=== PATIENT | male | born 1995 | race Caucasian/White ===

== ENCOUNTER 2024-03-08 06:41 | Outpatient (REF) | payer OTHER, SELFPAY ==
--- NOTE | ~2024-03-08 | US_ITS ---
EXAMINATION: US LEFT INGUINAL REGION, LEFT LOWER QUADRANT, LIMITED/FOLLOW UP CLINICAL INFORMATION: History of left inguinal hernia repair on July 2023, left lower quadrant pain with internal discomfort. No prior images available. COMPARISON: None available. TECHNIQUE: Targeted ultrasound images were obtained by the digital content coordinator of the area of concern as indicated by the patient in the left inguinal region and left lower quadrant. Radiologist was not in attendance. Images were later provided for interpretation. FINDINGS: No discrete hernia, mass or fluid collection identified in the area of concern indicated by the patient in the left inguinal region/left lower quadrant. Limited visualization due to bowel gas.. US/US pelvic limited IMPRESSION: No discrete hernia, mass or fluid collection identified in the area of concern indicated by the patient in the left inguinal region/left lower quadrant. Limited visualization due to bowel gas. CT scan could be considered for further evaluation. This study was presented today to March 08, 2024 for interpretation. Stat results provided at this time as requested by referring provider. Electronically signed by: Luz Arciniega MD 03/08/2024 01:33 PM BRANDON
== END 2024-03-08 06:42 | disposition home or self-care (01) ==
LOC: HO.UMASIMG 06:41
PROVIDERS: Visit Provider Emergency Medicine
DX: K40.91 Unilateral inguinal hernia, without obstruction or gangrene, recurrent (principal)
CPT/HCPCS: 76857

== ENCOUNTER → 2024-04-27 09:00 | Outpatient (BNV) | payer OTHER, SELFPAY | PROVIDERS: Visit Provider Internal Medicine Cardiovascular Disease | DX: R00.2 Palpitations (principal) | CPT/HCPCS: 93244 ==

== ENCOUNTER → 2024-04-27 10:30 | Outpatient (REF) | payer OTHER, SELFPAY ==
--- NOTE | 2024-04-27 | HM_ITS ---
Conclusion: 1. Patient was monitored for total period of 3 days 2. Baseline was normal sinus rhythm with average heart rate of 70 beats per minute 3. No significant pauses or arrhythmias noted 4. Patient reported 4 events with symptoms of palpitations correlating with sinus rhythm MTDD
--- OUTSIDE RECORDS SUMMARY | 2024-04-27 17:33 | XMS_ITS | Encounter Summary ---
Author Organization [facility] Address [address] [place] [address] Care Team Providers Care Tech Brazer Tester Name Role Phone Kiersten Sykes PA-C Primary Care Provider [phone]- [phone] Encounter Details Date Type Department Care Team (Late st Contact Info) Description 06/23/2023 Procedure [facility] Radiology Ultrasound [address] [place] [address] Social History Tobacco Use Types Packs/Day Years Used Date Smoking Tobacco: Never Assessed Sex and Gender Information Value Date Recorded Sex Assigned at Not on file Legal Sex Male 10:17 AM EDT Gender Identity Not on file Sexual Orientation Not on file documented as of this encounter Plan of Treatment Not on file documented as of this encounter Visit Diagnoses Not on filedocumented in this encounter Care Teams Tech Brazer Tester Relationship Specialty Start Date End Date Kiersten Sykes PA-C [address] [place] [address] PCP - General Physician Substation Maintenance Technician 06/25/23 documented as of this encounter
--- OUTSIDE RECORDS SUMMARY | 2024-04-27 17:34 | XMS_ITS | Patient Health Record ---
Author Organization [facility] Address [address] [place] [address] Care Team Providers Care Dairy Laboratory Technician Name Role Phone Onel Nikiazaynab Primary Care Provider Talha Fung Unavailable [phone] Allergies No Known Allergies Results Component Value Reference Range Notes Urinalysis, Routine, Micro o n positives - [id number] Reviewed date:06/29/2023 08:33:35 AM Interpretation: Performing Lab: Notes/Report: Specific [place] 1.010 1.005-1.030 pH 7.5 5.0-7.5 Urine-Color Yellow Yellow Appearance Clear Clear WBC Esterase Negative Negative Protein Negative Negative/Trace Glucose Negative Negative Ketones Negative Negative Occult Blood Negative Negative Bilirubin Negative Negative Urobilinogen,Semi-Qn 0.2 0.2-1.0 mg/dL Nitrite, Urine Negative Negative Microscopic Examination Comment Micr oscopic not indicated and not performed. CBC With Differential/Platel et Reviewed date:06/29/2023 08:33:35 AM Interpretation: Performing Lab: Notes/Report: WBC 5.4 3.4-10.8 x10E3/uL RBC 5.25 4.14-5.80 x10E6/uL Hemoglobin 15.2 13.0-17.7 g/dL Hematocrit 45.2 37.5-51.0 % MCV 86 79-97 fL MCH 29.0 26.6-33.0 pg MCHC 33.6 31.5-35.7 g/dL RDW 13.5 11.6-15.4 % Platelets 210 150-450 x10E3/uL Neutrophils 54 Not Estab. % Lymphs 37 Not Estab. % Monocytes 7 Not Estab. % Eos 1 Not Estab. % Basos 1 Not Estab. % Neutrophils (Absolute) 2.9 1.4-7.0 x10E3/uL Lymphs (Absolute) 2.0 0.7-3.1 x10E3/uL Monocytes(Absolute) 0.4 0.1-0.9 x10E3/uL Eos (Absolute) 0.1 0.0-0.4 x10E3/uL Baso (Absolute) 0.0 0.0-0.2 x10E3/uL Immature Granulocytes 0 Not Estab. % Immature Grans (Abs) 0.0 0.0-0.1 x10E3/uL Comp. Metabolic Panel (14) Reviewed date:06/29/2023 08:33:55 AM Interpretation: Performing Lab: Notes/Report: Glucose 89 70-99 mg/dL BUN 9 6-20 mg/dL Creatinine 0.80 0.76-1.27 mg/dL eGFR 125 >59 mL/min/1.73 BUN/Creatinine Ratio 11 9-20 Sodium 140 134-144 mmol/L Potassium 4.0 3.5-5.2 mmol/L Chloride 101 96-106 mmol/L Carbon Dioxide, Total 24 20-29 mmol/L Calcium 9.7 8.7-10.2 mg/dL Protein, Total 7.1 6.0-8.5 g/dL Albumin 4.8 4.3-5.2 g/dL Globulin, Total 2.3 1.5-4.5 g/dL A/G Ratio 2.1 1.2-2.2 Bilirubin, Total 1.4 0.0-1.2 mg/dL Alkaline Phosphatase 77 44-121 IU/L AST (SGOT) 39 0-40 IU/L ALT (SGPT) 71 0-44 IU/L LIPID PANEL Reviewed date:06/29/2023 08:33:55 AM Interpretation: Performing Lab: Notes/Report: Cholesterol, Total 172 100-199 mg/dL Triglycerides 111 0-149 mg/dL HDL Cholesterol 47 >39 mg/dL VLDL Cholesterol Juan Manuel 20 5-40 mg/dL LDL Chol Calc (NIH) 105 0-99 mg/dL HEMOGLOBIN A1c Reviewed date:06/29/2023 08:33:35 AM Interpretation: Performing Lab: Notes/Report: Hemoglobin A1c 5.0 4.8-5.6 % . Prediabetes: 5.7 - 6.4 Diabetes: >6.4 Glycemic control for adults with diabetes: <7.0 TSH Reviewed date:06/29/2023 08:33:35 AM Interpretation: Performing Lab: Notes/Report: TSH 1.630 0.450-4.500 uIU/mL Reason For Referral Reason 27 year old male wit h new left inguinal hernia. Please evaluate and treat Diagnosis 1 Inguinal hernia, lef t (K40.90) Referral Organization [facility] Referring Provider First Name Kiersten Referring Provider Last Name Onel Referring Provider Speciality Physician Measurer Machine Referred Provider Agustín Holland Referred Provider Specialty General Surg petr Referral Priority Routine Medications Medication SIG (Take, Route, Frequency, Duration) Notes Start Date End Date Status albuterol 90 mcg/inh 2 puff(s) inhaled e very 6 hours Not-Taking Yari OTC 30 mg/5 mL 5 mL orally 2 times a day Not-Taking Immunizations Vaccine Route Administration Date Status Comme nts Fluzone Unknown 12/16/2016 Administered Fluzone Unknown 12/26/2017 Administered Fluzone Unknown 01/02/2019 Administered Fluzone Unknown 01/24/2022 Administered Fluzone Unknown 02/12/2023 Administered MMR Unknown 07/16/2017 Administered Moderna Covid Bivalent 2021 Unknown 12/24/2021 Administ ered Moderna COVID-19 Unknown 03/18/2023 Administered Spikev ax RABim (Rabies, intramuscular) Unknown 06/05/2022 Admini stered RABim (Rabies, intramuscular) Unknown 06/09/2022 Admini stered RABim (Rabies, intramuscular) Unknown 06/13/2022 Admini stered RABim (Rabies, intramuscular) Unknown 06/20/2022 Admini stered Social History Tobacco Use: Social History Observation Description Date Details (start date - stop date) Never Smoker NA - NA Alcohol: Question Answer Notes Did you have a drink contain ing alcohol in the past year? Yes How often did you have a dri nk containing alcohol in the past year? Two to four times a month (2 points) How many drinks did you have on a typical day when you were drinking in the past year? 1 or 2 (0 points) How often did you have six o r more drinks on one occasion in the past year? Less than monthly (1 point) Points 3 Interpretation Negative Smoking: Question Answer Notes Are you a: nonsmoker Problems Problem Type SNOMED Code ICD Code Onset Dates Problem Status W/U Status Risk Notes Problem 274830912 Mild intermitten t asthma, uncomplicated (J45.20) Active confirmed Problem 270760669 Seasonal allergi es (J30.2) Active confirmed Vital Signs Temperature 98.1 degrees Fahrenheit 06/23/2023 Oximetry 98 07/21/2023 Blood pressure diastolic 72 mm Hg 07/21/2023 Height 63 in 07/21/2023 Blood pressure systolic 120 mm Hg 07/21/2023 Weight 165.4 lbs 07/21/2023 BMI 29.3 kg/m2 07/21/2023 Encounters Encounter Location Date Provider Diagnosis [facility] [address] [place] [address] 06/24/2023 Talha Fung [facility] [address] [place] [address] 06/23/2023 Kiersten Sykes Left groin mass R19.09 ; Seasonal allergies J30.2 ; Mild intermittent asthma, uncomplicated J45.20 ; Pain, joint, knee, left M25.562 and Abdominal bloating R14.0 [facility] [address] [place] [address] 07/21/2023 Kiersten Sykes Annual physical exam Z00.00 ; Left inguinal hernia K40.90 ; Seasonal allergies J30.2 ; Mild intermittent asthma, uncomplicated J45.20 ; Pain, joint, knee, left M25.562 ; Abdominal bloating R14.0 and Elevated LFTs R79.89 [facility] [address] [place] [address] 06/23/2023 Kiersten Sykes Abdominal bloating R14.0 ; Mild intermittent asthma, uncomplicated J45.20 ; Seasonal allergies J30.2 and Annual physical exam Z00.00 [facility] [address] [place] [address] 06/30/2023 Kiersten Sykes Inguinal hernia, lef t K40.90 [facility] [address] [place] [address] [address] [place] [address] 06/23/2023 Kiersten Sykes Assessments Encounter Date Diagnosis (ICD Code) Assessment Notes Treatment Notes Treatment Clinical Notes Section Notes 06/23/2023 Seasonal allergies (ICD-10 - J30.2) Hx of seasonal allergies. Using oral antihistamine on prn basis with good control.l 06/23/2023 Left groin mass (ICD-10 - R19.09) Progressively worsening left groin pain. Could not appreciate hernia on exam however plan to move forward with US to rule out. Discussed diagnosis of hernia in great detail. If present, will refer to general surgery for further evaluation. 06/23/2023 Mild intermittent asthma, uncomplicated (ICD-10 - J45.20) 06/23/2023 Abdominal bloating (ICD-10 - R14.0) 06/30/2023 Inguinal hernia, left (ICD-10 - K40.90) 07/21/2023 Annual physical exam (ICD-10 - Z00.00) Comprehensive exam performed. Counseled on diet and exercise. BMI reviewed - noted to be abnormal. Follow up plan discussed. Labs reviewed. Immunizations reviewed and UTD. States Tdap was given in 2022 (no report on file). Screened for high risk behaviors - none identified. 07/21/2023 Left inguinal hernia (ICD-10 - K40.90) Found to have mild fat containing left inguinal hernia during 05/[address] Holland, general surgery. Plans for left inguinal repair in 07/202307/21/2023 Seasonal allergies (ICD-10 - J30.2) Hx of seasonal allergies. Using oral antihistamine on prn basis with good control. 06/23/2023 Seasonal allergies (ICD-10 - J30.2) 06/23/2023 Mild intermittent asthma, uncomplicated (ICD-10 - J45.20) Hx of mild intermittent asthma as a child. No recent exacerbations and has not required albuterol inhaler. Will continue to monitor. 06/23/2023 Pain, joint, knee, left (ICD-10 - M25.562) Intermittent left knee pain. Symptoms worse with sedentary lifestyle. Consider secondary to limited movement vs OA vs other. Recommend frequent movement and stretching to avoid discomfort. Can consider plain films if no improvement. Patient understands and agrees with plan. 06/23/2023 Annual physical exam (ICD-10 - Z00.00) 07/21/2023 Mild intermittent asthma, uncomplicated (ICD-10 - J45.20) Hx of mild intermittent asthma as a child. No recent exacerbations and has not required albuterol inhaler. Will continue to monitor. 07/21/2023 Pain, joint, knee, left (ICD-10 - M25.562) Intermittent left knee pain. Symptoms worse with sedentary lifestyle. Consider secondary to limited movement vs OA vs other. Recommend frequent movement and stretching to avoid discomfort. Can consider plain films if no improvement. Patient understands and agrees with plan. 06/23/2023 Abdominal bloating (ICD-10 - R14.0) Reports of intermittent abdominal bloating, new and intermittent. Discussed potential differential diagnosis with the patient. Recommend he start to keep a food journal to rule out cause. Can consider food allergy testing during upcoming CPE. 07/21/2023 Abdominal bloating (ICD-10 - R14.0) Reports of intermittent abdominal bloating, new and intermittent. Discussed potential differential diagnosis with the patient. Recommend he start to keep a food journal to rule out cause. Can consider food allergy testing and H pylori rule out. Patient will complete in 08/2023 during repeat lft's. 07/21/2023 Elevated LFTs (ICD-10 - R79.89) 06/2023 labs yield ALT- 71. No prior hx of elevated LFTs. Discussed potential causes of elevated liver functions with patient. Plan to repeat in 6 weeks. 06/23/2023 Other Spent 50 minute s on patient including chart prepration, review of records, office evaluation/discus clark, care coordination, and documentation 07/21/2023 Other Plan Of Treatment Pending Test Test Name Order Date CBC With Differential/Platelet Hepatitis Panel (4) 07/21/2023 Celiac Disease Complete Panel 06/23/2023 Celiac Disease Complete Panel 07/21/2023 Food Allergy Profile 07/21/2023 Food Allergy Profile 06/23/2023 ultrasound : groin 06/23/2023 H pylori Breath Test 07/21/2023 Insurance Providers Payer Name Payer Address Payer Phone Subscriber Number Group Number Insured Name Patient Relationship to Insured Coverage Start Date Coverage End Date [facility] [address] Oleg shepherd, [place] [phone] [id number] Elpidio Ardon Self - patient is the insured Medical (General) History Surgical History Surgery Date(Month/Year) wisdom teeth
--- OUTSIDE RECORDS SUMMARY | 2024-04-27 17:34 | XMS_ITS | Clinical Summary ---
Author Organization [facility] Address [address] [place] [address] Care Team Providers Care Custody Assistant Name Role Phone Kiersten Sykes PA-C Primary Care Provider +1- [phone] Allergies No known active allergies Medications albuterol 108 (90 Base) MCG/ACT inhaler INHALE 1-2 PUFF BY MOUTH EVERY 4-6 HOURS NEEDED FOR WHEEZING OR DYSPNEA 06/02/2023 Active Active Problems No known active problems Encounters Date Type Department Care Team Description 03/14/2024 10:45 AM EST Office Visit [facility] General Surgery [place] [address] [facility] [address] [place] [address] Agustín oHlland DO Acute postoperative pain of left groin (Primary Dx) 03/02/2024 Telephone [facility] General Surgery [place] [address] [facility] [address] [place] [address] Rajani Calabrese MA Records Request (Patient called requesting his last office and operative note from Dr. Holland.) from Last 3 Months Social History Tobacco Use Types Packs/Day Years Used Date Smoking Tobacco: Never Smokeless Tobacco: Never Tobacco Cessation:Counseling Given: Not Answered Alcohol Use Standard Drinks/Week Comments Not Currently 0 (1 standard drink = 0.6 oz pur e alcohol) PHQ-2 Answer Date Recorded Patient Health Questionnaire-2 Score 0 07/21/2023 Sex and Gender Information Value Date Recorded Sex Assigned at Not on file Legal Sex Male 10:17 AM EDT Gender Identity Not on file Sexual Orientation Not on file Last Filed Vital Signs Vital Sign Reading Time Taken Comments Blood Pressure 142/78 03/14/2024 10:41 AM EST Pulse 61 03/14/2024 10:41 AM EST Temperature 36.1 ??C (97 ??F) 03/14/2024 10:41 AM EST Respiratory Rate 16 07/21/2023 9:27 AM EDT Oxygen Saturation - - Inhaled Oxygen Concentration - - Weight 72.6 kg (160 lb) 03/14/2024 10:41 AM EST Height 162.6 cm (5' 4 ) 03/14/2024 10:41 AM EST Body Mass Index 27.46 03/14/2024 10:41 AM EST Plan of Treatment Health Maintenance Due Date Last Done Comments Tetanus Vaccination ? Adult (1 - Tdap) 06/06/2022 06/05/2022 Influenza Vaccination Completed 01/20/2024 , 02/12/2023, 01/24/2022, Additional history exists SARS-COV-2 (COVID-19) Vaccination Completed 01/20/2024, 03/18/2023, 12/24/2021 HPV (Human Papilloma Virus) Vaccine Aged Out No longer eligible based on patient's age to complete this topic Pneumococcal Vaccine Aged Out No long er eligible based on patient's age to complete this topic Care Teams Custody Assistant Relationship Specialty Start Date End Date Kiersten Sykes PA-C [address] [place] [address] PCP - General Physician Butter Fat Tester 06/25/23
--- OUTSIDE RECORDS SUMMARY | 2024-04-27 17:34 | XMS_ITS ---
Author Organization [facility] Address [address] [place] [address] Care Team Providers Care Litigation Manager Name Role Phone Kiersten Sykes Primary Care Provider REASON FOR VISIT Physical Encounters Encounter Location Date Provider Diagnosis [facility] [address] [place] [address] 07/10/2023 Kiersten Sykes Plan Of Treatment No Information Progress Notes * Elpidio ARDON ADOB: [birth year] (28 yo M)Acc No.[id number]:07/10/2023 Progress Notes Patient:?Elpidio ARDON Ara Provider:?Kiersten Sykes PA-C :1995???Age:27 Y???Sex:Male Kenji e:07/10/2023 Address:[address] [facility] Subjective: * Chief Complaints: * ???1. Physical. * Medical History:? Objective: * Vitals:? Assessment: Plan: * Treatment: * Billing Information: * Visit Code:? * Procedure Codes:? * Electronic signature of Andrew Sykes PA-C on 04/27/2024 at 05:33 PM EST Sign off status: Pending * Provider:Zahra Sykes PA-C Date:?0 07/10/2023 Generated for Printi ng/Facarolynng/eTransmitting on:?04/27/2024 05:33 PM EST
--- OUTSIDE RECORDS SUMMARY | 2024-04-27 17:34 | XMS_ITS ---
Author Organization [facility] Address [address] [facility] [address] [place] [address] Care Team Providers Care Wheat Buyer Name Role Phone Kiersten Sykes Primary Care Provider Allergies No Known Allergies REASON FOR VISIT cpe Medications Medication SIG (Take, Route, Frequency, Duration) Notes Start Date End Date Status albuterol 90 mcg/inh 2 puff(s) inhaled e very 6 hours Not-Taking Yari OTC 30 mg/5 mL 5 mL orally 2 times a day Not-Taking Social History Tobacco Use: Social History Observation [...] Question Answer Notes Are you a: nonsmoker Vital Signs Blood pressure systolic 120 mm Hg 07/21/19 24 Blood pressure diastolic 72 mm Hg 024 Height 63 in 07/21/2023 Weight 165.4 lbs 07/21/2023 BMI 29.3 kg/m2 07/21/2023 Oximetry 98 07/21/2023 Encounters Encounter Location Date Provider Diagnosis [facility] [address] [facility] [address] [place] [address] 07/21/2023 Kiersten Sykes Annual physical exam Z00.00 ; Left inguinal hernia K40.90 ; Seasonal allergies J30.2 ; Mild intermittent asthma, uncomplicated J45.20 ; Pain, joint, knee, left M25.562 ; Abdominal bloating R14.0 and Elevated LFTs R79.89 Assessments Encounter Date Diagnosis (ICD Code) Assessment Notes Treatment Notes Treatment Clinical Notes Section Notes 07/21/2023 Annual physical exam (ICD-10 - Z00.00) [...] antihistamine on prn basis with good control. 07/21/2023 Mild intermittent asthma, uncomplicated (ICD-10 - [...] improvement. Patient understands and agrees with plan. 07/21/2023 Abdominal bloating (ICD-10 - R14.0) Reports [...] patient. Plan to repeat in 6 weeks. 07/21/2023 Other Plan Of Treatment Treatment Notes Assessment Notes Annual physical exam Comprehensive exam performed. Counseled on diet and exercise. BMI reviewed - noted to be abnormal. Follow up plan discussed. Labs reviewed. Immunizations reviewed and UTD. States Tdap was given in 2022 (no report on file). Screened for high risk behaviors - none identified. Left inguinal hernia Found to have mild fat containing left inguinal hernia during 05/[address] Holland, general surgery. Plans for left inguinal repair in 07/2023 Seasonal allergies Hx of seasonal aller gies. Using oral antihistamine on prn basis with good control. Mild intermittent asthma, uncomplicated Hx of mild intermittent asthma as a child. No recent exacerbations and has not required albuterol inhaler. Will continue to monitor. Pain, joint, knee, left Intermittent lef t knee pain. Symptoms worse with sedentary lifestyle. Consider secondary to limited movement vs OA vs other. Recommend frequent movement and stretching to avoid discomfort. Can consider plain films if no improvement. Patient understands and agrees with plan. Abdominal bloating Reports of intermitt ent abdominal bloating, new and intermittent. Discussed potential differential diagnosis with the patient. Recommend he start to keep a food journal to rule out cause. Can consider food allergy testing and H pylori rule out. Patient will complete in 08/2023 during repeat lft's. Elevated LFTs 06/2023 labs yield AL T- 71. No prior hx of elevated LFTs. Discussed potential causes of elevated liver functions with patient. Plan to repeat in 6 weeks. Pending Test Test Name Order Date CBC With Differential/Platelet Hepatitis Panel (4) 07/21/2023 Celiac Disease Complete Panel 07/21/2023 Food Allergy Profile 07/21/2023 H pylori Breath Test 07/21/2023 Next Appt Details Follow Up: 6 weeks, Reason: Labs Progress Notes * Elpidio ARDON ADOB: [birth year] (27 yo M)Acc No.[id number]:07/21/2023 Progress Notes Patient:?AUDREYElpidio HARRIS A Provider:?Kiersten Sykes PA-C :1995???Age:27 Y???Sex:Male Kenji e:07/21/2023 Address:[address] , [facility] Subjective: * Chief Complaints: * ???Cpe * HPI: ???Depression screening:?PHQ 9?Little interest or pleasure in doing things?Not at all,?Feeling down, depressed, or hopeless?Not at all,?Trouble falling or staying asleep, or sleeping too much?Not at all,?Feeling tired or having little energy?Several days,?Poor appetite or overeating?Several days,?Feeling bad about yourself-or that you are a failure or have let yourself or your family down?Not at all,?Trouble concentrating on things, such as reading the newspaper or watching television?Several days,?Moving or speaking so slowly that other people could have noticed. 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 ?Med hx:?Seasonal allergies, mild intermittent asthma. ?Asthma/allergies:?Using albuterol prn. Does not require often. No prior hx of hospitalization for asthma exacerbation. ?GI- Patient complains of abdominal bloating after eating. Patient notes his symptoms occur with different foods. Only occurring intermittently. Has normal bowel movements. Notes noting possible exposure to his friend who was recently treated for H. pylori.?Abdomen:?- Patient notes bulge of the left groin area. He notes over the last week, pain is more noticeable. Notes feeling symptoms during bowel movements. Since onset, he feels his symptoms worsen each day. He notes concern for inguinal hernia and would like to rule this out. Patient notes he feels like something is going back in . Sitting worsens pain. Groin US completed in 05/2023 yielding mild fat containing left inguinal hernia. Pending surgical repair with Dr. Holland in 07/2023. ?MSK- c/o left knee pain and discomfort. Patient complaints of left knee pain and tightness.. Patient notes pain is worse with sitting. Pain improves on movement..? * ROS:?As per HPI. * Medical History:? * Surgical History:?wisdom dionisio th * Hospitalization/Major Diagno stic Procedure:?Denies Past Hospitalization * Family History:?Father: salty wang 69 yrs, Rectal bleed x2- diverticulitis., diagnosed with Hypertension.?Mother: alive 67 yrs, diagnosed with Hypertension.?Paternal Grand Father: .?Paternal Grand Mother: alive, diagnosed with Hypertension.?Maternal Grand Father: , Dementia.?Maternal Grand Mother: , Breast CA, DOD in 60's, diagnosed with Cancer.? * Social History:?Smoking: no? Are you a:?nonsmoker.?Alcohol: socially, Did you have a drink containing alcohol in the past year?: Yes, How often did you have a drink containing alcohol in the past year?: Two to four times a month (2 points), How many drinks did you have on a typical day when you were drinking in the past year?: 1 or 2 (0 points), How often did you have six or more drinks on one occasion in the past year?: Less than monthly (1 point), Points: 3, Interpretation: Negative. Drug use: no. Marital Status: . Exercise: Occasional hiking. Caffeine: no. * Medications:?Not-Takingalbut antonio 90 mcg/inh aerosol 2 puff(s) inhaled every 6 hours Yari OTC 30 mg/5 mL suspension 5 mL orally 2 times a day Medication List reviewed and reconciled with the patientNot-Taking albuterol 90 mcg/inh aerosol 2 puff(s) inhaled every 6 hours Not-Taking Yari OTC 30 mg/5 mL suspension 5 mL orally 2 times a day Medication List reviewed and reconciled with the patient * Allergies:?N.K.D.A.no[Allerg ies Verified] Objective: * Vitals:?Ht: 63 in, Wt: 165.4 lbs, BMI:29.3, BP: 120/72, HR: 77, Pulse ox: 98. * Examination: ???General Examination: ?General Appearance:?NAD, alert and oriented.?Skin:?unremarkable.?Lungs:?clear to auscultation bilaterally, no wheezes/rhonchi/rales.?Abdomen:?Soft, Non- tender, Non-distended with Normal Bowel Sounds, no hepatosplenomegaly.?Male Genitourinary:?Tenderness to the left inguinal region however no palpable hernia felt..?Extremities:?no clubbing, no cyanosis, no edema.?Peripheral pulses:?normal (2+) bilaterally.?Neurologic Exam:?non-focal exam.?Musculoskeletal:?full ROM joints, no deformities.? Assessment: * Assessment: 1.?Annual physical exam - Z0 0.00 (Primary)?2.?Left inguinal hernia - K40.90?3.?Seasonal allergies - J30.2?4.?Mild intermittent asthma, uncomplicated - J45.20?5.?Pain, joint, knee, left - M25.562?6.?Abdominal bloating - R14.0?7.?Elevated LFTs - R79.89? Plan: * Treatment: 2.?Left inguinal hernia? Notes: Found to have mild fat containing left inguinal hernia during 05/[address] Holland, general surgery. Plans for left inguinal repair in 07/2023?? 3.?Seasonal allergies? Notes: Hx of seasonal allergies. Using oral antihistamine on prn basis with good control.?? 4.?Mild intermittent asthma, uncomplicated? Notes: Hx of mild intermittent asthma as a child. No recent exacerbations and has not required albuterol inhaler. Will continue to monitor.?? 5.?Pain, joint, knee, left? Notes: Intermittent left knee pain. Symptoms worse with sedentary lifestyle. Consider secondary to limited movement vs OA vs other. Recommend frequent movement and stretching to avoid discomfort. Can consider plain films if no improvement. Patient understands and agrees with plan.?? 6.?Abdominal bloating?LAB: Celiac Disease Complete Panel ?LAB: Food Allergy Profile ?LAB: H pylori Breath Test Notes: Reports of intermittent abdominal bloating, new and intermittent. Discussed potential differential diagnosis with the patient. Recommend he start to keep a food journal to rule out cause. Can consider food allergy testing and H pylori rule out. Patient will complete in 08/2023 during repeat lft's.?? 7.?Elevated LFTs?LAB: CBC With Differential/Platelet ?LAB: Hepatitis Panel (4) Notes: 06/2023 labs yield ALT- 71. No prior hx of elevated LFTs. Discussed potential causes of elevated liver functions with patient. Plan to repeat in 6 weeks. ?? * Procedure Codes:?17425 MEASU RE BLOOD OXYGEN [id number] BRIEF EMOTIONAL/BEHAV ASSMT, Modifiers: 59 * Follow Up:?6 weeks (Reason: Labs) * Images: Billing Information: * Visit Code:? 21726 Preventive Care Est Pt. Age 18-39. 10152 Office Visit, Est Pt., Level 4. * Procedure Codes:? 73193 MEASURE BLOOD OXYGEN LEVEL. 07469 BRIEF EMOTIONAL/BEHAV ASSMT. 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 Med hx: Seasonal allergies, mild intermittent asthma. Asthma/allergies: Using albuterol prn. Does not require often. No prior hx of hospitalization for asthma exacerbation. GI- Patient complains of abdominal bloating after eating. Patient notes his symptoms occur with different foods. Only occurring intermittently. Has normal bowel movements. Notes noting possible exposure to his friend who was recently treated for H. pylori. Abdomen: - Patient notes bulge of the left groin area. He notes over the last week, pain is more noticeable. Notes feeling symptoms during bowel movements. Since onset, he feels his symptoms worsen each day. He notes concern for inguinal hernia and would like to rule this out. Patient notes he feels like something is going back in . Sitting worsens pain. Groin US completed in 05/2023 yielding mild fat containing left inguinal hernia. Pending surgical repair with Dr. Holland in 07/2023. MSK- c/o left knee pain and discomfort. Patient complaints of left knee pain and tightness.. Patient notes pain is worse with sitting. Pain improves on movement. Depression screening PHQ 9 Little inte rest or pleasure in doing things: Not at all Feeling down, depressed, or hopeless: No t at all Trouble falling or staying asleep, or sl eeping too much: Not at all Feeling tired or having little energy: S everal days Poor appetite or overeating: Several day s Feeling bad about yourself-o r that you are a failure or have let yourself or your family down: Not at all Trouble concentrating on thi ngs, such as reading the newspaper or watching television: Several days Moving or speaking so slowly that other people could have noticed. Or the opposite being so fidgety or restless that you have been moving around a lot more than usual: Not at all Thoughts that you would be b nancy off , or of hurting yourself in some way: Not at all Total Score: 3 Intepretation: Minimal Depression Examination Category Sub-Category Detail Notes Category Not es General Examination Lungs: clear to aus cultation bilaterally, no wheezes/rhonchi/rales Abdomen: Soft, Non-tender, No n-distended with Normal Bowel Sounds, no hepatosplenomegaly Extremities: no clubbing, no cyan osis, no edema General Appearance: NAD, alert and orien ida Skin: unremarkable Neurologic Exam: non-focal exam Peripheral pulses: normal (2+) bilatera lly Male Genitourinary: Tenderness to the le ft inguinal region however no palpable hernia felt. Musculoskeletal: full ROM joints, no deformities
--- OUTSIDE RECORDS SUMMARY | 2024-04-27 17:34 | XMS_ITS ---
Author Organization [facility] Address [address] [facility] [address] [place], [place] Care Team Providers Care Epoxy Coatings Installer Name Role Phone Kiersten Sykes Primary Care Provider [phone] Talha Fung [phone] REASON FOR VISIT lab Encounters Encounter Location Date Provider Diagnosis [facility] [address] [place] [address] 09/03/2023 Talha Fung Plan Of Treatment No Information Progress Notes * Elpidio ARDON ADOB: [birth year] (28 yo M)Acc No.[id number]:09/03/2023 Phlebotomy Patient:?REVA, Elpidio Ara Provider:?Talha Fung MD :1995???Age:27 Y???Sex:Male Kenji e:09/03/2023 Address:[address] [place] [address] [address] [place], [place] Pcp:Kiersten Sykes Subjective: * Chief Complaints: Objective: Assessment: Plan: * Billing Information: * Visit Code:? * Procedure Codes:? * Electronic signature of Joanne Fung MD on 04/27/2024 at 05:33 PM EST Sign off status: Pending * Provider:?Talha Fung MD Date:? 024 Generated for Printi ng/Faxing/eTransmitting on:?04/27/2024 05:33 PM EST
--- OUTSIDE RECORDS SUMMARY | 2024-04-27 17:34 | XMS_ITS | Referral Summary ---
Author Organization [facility] Address [address] [place] [address] Care Team Providers Care Basket Hand Weaver Name Role Phone Kiersten Sykes PA-C Primary Care Provider +1- [phone] Encounters Date Type Department Care Team Description 03/14/2024 10:45 AM EST Office Visit [facility] [place] [address] [facility] [address] [place] [address] Agustín Holland DO Acute postoperative pain of left groin (Primary Dx) 03/02/2024 Telephone [facility] [place] [address] [facility] [address] [place] [address] Rajani Calabrese MA Records Request (Patient called requesting his last office and operative note from Dr. Holland.) from Last 3 Months Allergies No known active allergies Medications albuterol 108 (90 Base) MCG/ACT inhaler INHALE 1-2 PUFF BY MOUTH EVERY 4-6 HOURS NEEDED FOR WHEEZING OR DYSPNEA 06/02/2023 Active Active Problems No known active problems Social History Tobacco Use Types Packs/Day Years [...] 03/14/2024 10:41 AM EST Plan of Treatment Not on file Care Teams Basket Hand Weaver Relationship Specialty Start Date End Date Kiersten Sykes PA-C [address] [place] [address] PCP - General Physician Forest Technician 06/25/23
--- OUTSIDE RECORDS SUMMARY | 2024-04-28 11:22 | XMS_ITS | Encounter Summary ---
Author Organization [facility] Address [address] [place] [address] Care Team Providers Care Poundmaster Name Role Phone Kiersten Sykes PA-C Primary Care Provider +1- [phone] Encounter Details Date Type Department Care Team (Late st Contact Info) Description 06/23/2023 Procedure Pass [facility] Radiology Ultrasound [address] [place] [address] Social History Tobacco Use Types [...] on filedocumented in this encounter Care Teams Poundmaster Relationship Specialty Start Date End Date Kiersten Sykes PA-C [address] [place] [address] PCP - General Physician Parcel Post Carrier 06/25/23 documented as of this encounter
--- OUTSIDE RECORDS SUMMARY | 2024-04-28 11:23 | XMS_ITS ---
Author Organization [facility] Address [address] [facility] [address] [place] [address] Care Team Providers Care Chairman Emeritus Name Role Phone Kiersten Sykes Primary Care Provider [phone] REASON FOR VISIT Physical Encounters Encounter Location Date Provider Diagnosis [facility] [address] [facility] [address] [place] [address] 07/10/2023 Kiersten Sykes Plan Of Treatment No Information Progress Notes * Elpidio ARDON ADOB: [birth year] (28 yo M)Acc No.[id number]:07/10/2023 Progress Notes Patient:?Elpidio ARDON Ara Provider:?Kiersten Sykes PA-C :1995???Age:27 Y???Sex:Male Kenji e:07/10/2023 Address:[address] [facility] Subjective: * Chief Complaints: * ???1. Physical. * Medical History:? Objective: * Vitals:? Assessment: Plan: * Treatment: * Billing Information: * Visit Code:? * Procedure Codes:? * Electronic signature of Andrew Sykes PA-C on 04/28/2024 at 11:22 AM EST Sign off status: Pending * Provider:Zahra Sykes PA-C Date:?0 07/10/2023 Generated for Kari thee/Facris/eTransmitting on:?04/28/2024 11:22 AM EST
--- OUTSIDE RECORDS SUMMARY | 2024-04-28 11:23 | XMS_ITS | Clinical Summary ---
Author Organization [facility] Address [address] [place] [address] Care Team Providers Care Supervisor Data Processing Name Role Phone Kiersten Sykes PA-C Primary Care Provider +1- [phone] Allergies No known active allergies Medications albuterol 108 (90 Base) MCG/ACT inhaler INHALE 1-2 PUFF BY MOUTH EVERY 4-6 HOURS NEEDED FOR WHEEZING OR DYSPNEA 06/02/2023 Active Active Problems No known active problems Encounters Date Type Department Care Team Description 03/14/2024 10:45 AM EST Office Visit [facility] [place] [address] [facility] [address] [place] [address] Agustín Holland DO Acute postoperative pain of left groin (Primary Dx) 03/02/2024 Telephone [facility] General Surgery [place] [address] [facility] [address] [place] [address] Rajani Calabrese MA Records Request [...] age to complete this topic Care Teams Supervisor Data Processing Relationship Specialty Start Date End Date Kiersten Sykes PA-C [address] [place] [address] PCP - General Physician Tack Picker 06/25/23
--- OUTSIDE RECORDS SUMMARY | 2024-04-28 11:23 | XMS_ITS | Patient Health Record ---
Author Organization [facility] Address [address] [facility] [address] [place] [address] Care Team Providers Care Ocean Lifeguard Specialist Name Role Phone Onel Nikiazaynab Primary Care Provider [phone] Talha Fung Unavailable [phone] Allergies No Known Allergies Results Component Value Reference Range Notes Urinalysis, Routine, Micro o n positives - 340500 Reviewed date:06/29/2023 08:33:35 AM Interpretation: Performing Lab: Notes/Report: Specific [place] 1.010 1.005-1.030 pH 7.5 5.0-7.5 Urine-Color Yellow [...] Inguinal hernia, lef t (K40.90) Referral Organization [facility] Referring Provider First Name Kiersten Referring Provider Last Name Onel Referring Provider Speciality Physician Support Assistant Referred Provider Agustín Holland Referred Provider Specialty [...] Problem Status W/U Status Risk Notes Problem [id number] Mild intermitten t asthma, uncomplicated (J45.20) Active confirmed Problem [id number] Seasonal allergi es (J30.2) Active confirmed Vital Signs Temperature 98.1 degrees Fahrenheit 06/23/2023 Oximetry 98 07/21/2023 Blood pressure diastolic 72 mm Hg 07/21/2023 Height 63 in 07/21/2023 Blood pressure systolic 120 mm Hg 07/21/2023 Weight 165.4 lbs 07/21/2023 BMI 29.3 kg/m2 07/21/2023 Encounters Encounter Location Date Provider Diagnosis [facility] [address] [place] [address] 06/24/2023 Talha Fung [facility] [address] [place] [address] 06/23/2023 Kiersten Sykes Left groin mass R19.09 ; Seasonal allergies J30.2 ; Mild intermittent asthma, uncomplicated J45.20 ; Pain, joint, knee, left M25.562 and Abdominal bloating R14.0 [facility] [address] [place] [address] 07/21/2023 Kiersten Sykes Annual physical exam Z00.00 ; Left inguinal hernia K40.90 ; Seasonal allergies J30.2 ; Mild intermittent asthma, uncomplicated J45.20 ; Pain, joint, knee, left M25.562 ; Abdominal bloating R14.0 and Elevated LFTs R79.89 [facility] [address] [place] [address] 06/23/2023 Kiersten Sykes Abdominal bloating R14.0 ; Mild intermittent asthma, uncomplicated J45.20 ; Seasonal allergies J30.2 and Annual physical exam Z00.00 [facility] [address] [place] [address] 06/30/2023 Kiersten Sykes Inguinal hernia, lef t K40.90 [facility] [address] [place] [address] [address] [place] [address] 06/23/2023 Kiersten Sykes Assessments Encounter Date Diagnosis [...] Insured Coverage Start Date Coverage End Date [employer] [address] Oleg shepherd, [place] [phone] [id number] Elpidio Ardon Self - patient is the insured Medical (General) History Surgical History Surgery Date(Month/Year) wisdom teeth
--- OUTSIDE RECORDS SUMMARY | 2024-04-28 11:23 | XMS_ITS | Referral Summary ---
Author Organization [facility] Address [address] [place] [address] Care Team Providers Care Trim Mounter Name Role Phone Kiersten Sykes PA-C Primary Care Provider +1- [phone] Encounters Date Type Department Care Team Description 03/14/2024 10:45 AM EST Office Visit [facility] Surgery [place] [address] [facility] [address] [place] [address] Agustín Holland DO Acute postoperative pain of left groin (Primary Dx) 03/02/2024 Telephone [facility] Surgery [place] [address] [facility] [address] [place] [address] Rajani Calabrese MA Records Request [...] of Treatment Not on file Care Teams Trim Mounter Relationship Specialty Start Date End Date Kiersten Sykes PA-C [address] [place] [address] PCP - General Physician Finishing Machine Tender 06/25/23
--- OUTSIDE RECORDS SUMMARY | 2024-04-28 11:23 | XMS_ITS ---
Author Organization [facility] Address [address] [facility] [address] [place] [address] Care Team Providers Care Institutional Asset Manager Name Role Phone Kiersten Sykes Primary Care Provider [phone] Allergies No Known Allergies REASON FOR VISIT [...] 07/21/2023 Encounters Encounter Location Date Provider Diagnosis [facility] [address] [facility] [address] [place] [address] 07/21/2023 Kiesrten Sykes Annual physical exam Z00.00 ; Left [...] Elpidio ARDON ADOB: [birth year] (27 yo M)Acc No.[id number]:07/21/2023 Progress Notes Patient:?AUDREYElpidio HARRIS A Provider:?Kiersten Sykes PA-C :1995???Age:27 Y???Sex:Male Kenji e:07/21/2023 Address:[address] , [id number] Subjective: * Chief Complaints: * ???Cpe * [...] repeat in 6 weeks. ?? * Procedure Codes:?36113 MEASU RE BLOOD OXYGEN [id number] BRIEF EMOTIONAL/BEHAV ASSMT, Modifiers: 59 * Follow Up:?6 weeks (Reason: Labs) * Images: Billing Information: * Visit Code:? 87740 Preventive Care Est Pt. Age 18-39. 24548 Office Visit, Est Pt., Level 4. * Procedure Codes:? 41960 MEASURE BLOOD OXYGEN LEVEL. 71046 BRIEF EMOTIONAL/BEHAV ASSMT. Modifiers: 59 * Sign off status: Completed true * Provider:Zahra Sykes PA-C Date:?0 07/21/2023 Generated for Capo kingston/Kelsi/eTransmitting on:?04/28/2024 11:22 AM EST History and Physical Notes * HPI [...]
--- OUTSIDE RECORDS SUMMARY | 2024-04-28 11:23 | XMS_ITS ---
Author Organization [facility] Address [address] [facility] [address] [place], [place] Care Team Providers Care High School Biology Teacher Name Role Phone Kiersten Sykes Primary Care Provider Talha Fung [phone] REASON FOR VISIT lab Encounters Encounter Location Date Provider Diagnosis [facility] [address] [place] [address] 09/03/2023 Talha Fung Plan Of Treatment No Information Progress Notes * Elpidio ARDON ADOB: [birth year] (28 yo M)Acc No.[id number]:09/03/2023 Phlebotomy Patient:?REVA, Elpidio Ara Provider:?Talha Fung MD :1995???Age:27 Y???Sex:Male Kenji e:09/03/2023 Address:[address] [place] [address] [address] [place], [place] Pcp:Kiersten Sykes Subjective: * Chief Complaints: Objective: Assessment: Plan: * Billing Information: * Visit Code:? * Procedure Codes:? * Electronic signature of Joanne Fung MD on 04/28/2024 at 11:22 AM EST Sign off status: Pending * Provider:?Talha Fung MD Date:? 024 Generated for Printi ng/Faxing/eTransmitting on:?04/28/2024 11:22 AM EST
== END ==
LOC: HO.CARD 10:30
PROVIDERS: Visit Provider Emergency Medicine
DX: R00.2 Palpitations (principal)
CPT/HCPCS: 93242

== ENCOUNTER 2024-08-02 08:26 | Outpatient (AMB) | payer OTHER, SELFPAY ==
[2024-08-02 08:32] VITALS: BP 130/78; PULSE 88; BMI 26.1
--- NOTE | 2024-08-02 08:32 | MHC.OFFVIS ---
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 Patient has had longstanding history of intermittent episodes of palpitations. However few months ago he had episode of 3 days of palpitation which were very frequent happen about 40-50 times in the day and was very bothersome to him. He felt like his heart was fluttering. He said he might have been in increased stress during that time. After that the symptoms subsided he had a Holter monitor which did not show any significant arrhythmias and he was subsequently referred here. He had EKG done through your office which suggested and he was not sure whether there was WPW syndrome. He was not aware of this. 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 He has had 1 episode since then of lightheadedness while he was with his and he had gone out to a restaurant about just about sit down he felt like he was going to pass out. At that time he did not have any rapid heart rate. The symptoms since then have subsided. He is not also had any significant palpitations. He has been on a stimulant for his ADHD but this has not affected any significant symptoms at that point time. He denies any exertional symptoms of lightheadedness, syncope. No prolonged rapid heart rate or palpitations. No family history of any electrical abnormality or sudden cardiac that. He has father has aortic stenosis. Unclear whether he has bicuspid valve. He has had no prior congenital heart issues. Denies any significant use of stimulants or drugs or nngv-jcv-moawgqz medications. [facility] Surgical History Hx of hernia repair Family History Father HTN (hypertension) Mother HTN (hypertension) Social History Patient Tobacco Use Status: Never used Tobacco Review of Systems Const Denies chills, Denies daytime sleepiness, Denies fatigue, Denies fever(s), Denies frequent falls, Denies poor appetite, Denies snoring, Denies stops breathing during sleep, Denies weakness, Denies weight gain and Denies weight loss Eyes Denies loss of vision ENT Reports dizziness and Denies hearing loss Card Reports chest pain, Denies claudication, Denies leg edema, Denies lightheadedness, Reports palpitations, Denies dyspnea, Denies dyspnea on exertion and Denies orthopnea Resp Denies cough, Denies excessive phlegm production, Denies dyspnea, Denies dyspnea on exertion, Denies snoring and Denies wheezing GI Denies abdominal pain, Denies hematochezia, Denies change in bowel habits, Denies nausea and Denies vomiting Denies dysuria and Denies urinary frequency Musc Denies arthralgias, Denies muscle weakness, Denies numbness and Denies other (frequent falls) Skin/Breast Denies nail changes and Denies rash Neuro Denies Abnormal speech present, Reports dizziness, Denies frequent falls, Denies loss of vision, Denies memory loss, Denies numbness and Denies weakness Psych Denies depression and Denies memory loss Endo Denies fatigue and Reports palpitations Clive/Lymph Reports easy bruising and Reports other (anemia) Aller/Immun Denies wheezing Physical Exam Vital Signs: Last Vital Signs Pulse 88 08/02/24 08:32 BP 130/78 08/02/24 08:32 BMI result Body Mass Index 26.1 Const General: cooperative, comfortable, no acute distress, well developed, alert, awake, Physically active and well groomed Nutritional Appearance: average body habitus Orientation/consciousness: patient oriented x3 Limitations: no limitations HEENT Head: Yes normocephalic and Yes atraumatic Neck Neck: Yes trachea midline, Yes supple and Yes no JVD Resp Effort & Inspection: normal respiratory effort Auscultation: clear to auscultation bilaterally Cardio Jugular venous distension: no JVD Palpation: normal PMI Rate: regular rate Rhythm: regular rhythm Heart sounds: S1 normal heart sound present, S2 normal heart sound present, no click, no gallops, no murmurs and no rubs GI Auscultation: normal bowel sounds Skin General skin exam: no rashes or lesions noted Neuro General: patient oriented x3 and no focal motor deficits Speech: No Abnormal speech present Extrem General: Yes no clubbing, cyanosis or edema Psych Appearance: grossly normal Office Procedures EKG Details: EKG shows normal sinus rhythm with WPW pattern on EKG with possible right anteroseptal pathway 01030-Ocakidktxwrduazek, Complete Assessment & Plan Assessment & Plan (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 However given these extra systoles makes him more prone to potentially have those arrhythmias. I would suggest an echocardiogram to rule out any underlying structural heart disease associated with WPW pattern on EKG. Also suggest a treadmill stress test to evaluate conductivity of the accessory pathway. If he has high conductivity would consider him for ablation. Will also obtain a 30 day event monitor to assess for any other arrhythmias. He is advised to avoid other stimulants. Advised to maintain adequate hydration. Will follow up in the clinic after above-mentioned test. Management was discussed in details. He understands and agrees. Thank you for allowing me to partake in his care Orders: Orders CA stress test Today I45.6 - Pre-excitation syndrome ECG 30 day event monitor Today I45.6 - Pre-excitation syndrome CA echo transthoracic complete Today I45.6 - Pre-excitation syndrome Coding Level of Care Code New Pt Level 4 (23792) Complex EM visit Add On G2211 Diagnoses WPW (Yaheo-Uuhrasuxd-Uxkop syndrome) I45.6 CPT Codes EKG - CPT: 27297-Yfbvuqjsegjvarcio, Complete ([id number])
--- OUTSIDE RECORDS SUMMARY | 2024-08-02 08:44 | XMS_ITS | Referral Summary ---
Author Organization [facility] Address [address] [place] [address] Care Team Providers Care Health And Human Performance Professor Name Role Phone Kiersten Sykes PA-C Primary Care Provider +1- [phone] Allergies No known active allergies Medications albuterol [...] of Treatment Not on file Care Teams Health And Human Performance Professor Relationship Specialty Start Date End Date Kiersten Sykes PA-C [address] [place] [address] PCP - General Physician Machine Cleaner 06/25/23
--- OUTSIDE RECORDS SUMMARY | 2024-08-02 08:44 | XMS_ITS | Clinical Summary ---
Author Organization [facility] Address [address] [place] [address] Care Team Providers Care Tracer Bullet Section Supervisor Name Role Phone Kiersten Sykes PA-C Primary Care Provider +1- [phone] Allergies No known active allergies Medications albuterol [...] age to complete this topic Care Teams Tracer Bullet Section Supervisor Relationship Specialty Start Date End Date Kiersten Sykes PA-C [address] [place], [place] PCP - General Physician Network Admin 06/25/23
--- OUTSIDE RECORDS SUMMARY | 2024-08-02 08:44 | XMS_ITS | Encounter Summary ---
Author Organization [facility] Address [address] [place] [address] Care Team Providers Care Window Shade Estimator Name Role Phone Kiersten Sykes PA-C Primary Care Provider +1- [phone] Encounter Details Date Type Department Care Team (Late st Contact Info) Description 06/23/2023 Procedure Pass [facility] Radiology Ultrasound [address] [place] [address] Social History Tobacco Use Types [...] on filedocumented in this encounter Care Teams Window Shade Estimator Relationship Specialty Start Date End Date Kiersten Sykes PA-C [address] [place] [address] PCP - General Physician Design Printer Balloon 06/25/23 documented as of this encounter
--- OUTSIDE RECORDS SUMMARY | 2024-08-02 08:44 | XMS_ITS ---
Author Organization [facility] Address [address] [facility] [address] [place] [address] Care Team Providers Care Set Designer Name Role Phone Kiersten Sykes Primary Care Provider [phone] REASON FOR VISIT Physical Encounters Encounter Location Date Provider Diagnosis [facility] [address] [facility] [address] [place] [address] 07/10/2023 Kiersten Sykes Plan Of Treatment No Information Progress Notes * Elpidio ARDON ADOB: [birth year] (28 yo M)Acc No.[id number]:07/10/2023 Progress Notes Patient:?Elpidio ARDON Ara Provider:?Kiersten Sykes PA-C :1995???Age:27 Y???Sex:Male Kenji e:07/10/2023 Address:[address] [facility] Subjective: * Chief Complaints: * ???1. Physical. * Medical History:? Objective: * Vitals:? Assessment: Plan: * Treatment: * Billing Information: * Visit Code:? * Procedure Codes:? * Electronic signature of Andrew Sykes PA-C on 08/02/2024 at 08:44 AM EDT Sign off status: Pending * Provider:Zahra Sykes PA-C Date:?0 07/10/2023 Generated for Printi ng/Facarolynng/eTransmitting on:?08/02/2024 08:44 AM EDT
--- OUTSIDE RECORDS SUMMARY | 2024-08-02 08:45 | XMS_ITS ---
Author Organization [facility] Address [address] [facility] [address] [place] [address] Care Team Providers Care Cashier Tube Room Name Role Phone Kiersten Sykes Primary Care [...] 07/21/2023 Encounters Encounter Location Date Provider Diagnosis [facility] [address] [facility] [address] [place] [address] 07/21/2023 Kiersten Sykes Annual physical exam Z00.00 [...] Elpidio ARDON ADOB: [birth year] (27 yo M)Acc No.[id number]:07/21/2023 Progress Notes Patient:?AUDREYElpidio HARRIS A Provider:?Kiersten Sykes PA-C :1995???Age:27 Y???Sex:Male Kenji e:07/21/2023 Address:[address] , [facility] Subjective: * Chief Complaints: * ???Cpe * [...] repeat in 6 weeks. ?? * Procedure Codes:?49133 MEASU RE BLOOD OXYGEN [id number] BRIEF EMOTIONAL/BEHAV ASSMT, Modifiers: 59 * Follow Up:?6 weeks (Reason: Labs) * Images: Billing Information: * Visit Code:? 93628 Preventive Care Est Pt. Age 18-39. 42552 Office Visit, Est Pt., Level 4. * Procedure Codes:? 77575 MEASURE BLOOD OXYGEN LEVEL. 11068 BRIEF EMOTIONAL/BEHAV ASSMT. Modifiers: 59 * Sign off status: Completed true * Provider:Zahra Sykes PA-C Date:?0 07/21/2023 Generated for Capo kingston/Kelsi/eTransmitting on:?08/02/2024 08:44 AM EDT History and Physical Notes * HPI (History [...]
--- OUTSIDE RECORDS SUMMARY | 2024-08-02 08:45 | XMS_ITS ---
Author Organization [facility] Address [address] Care Team Providers Care Public Relations Supervisor Name Role Phone Kiersten Sykes Primary Care Provider Talha Fung [phone] REASON FOR VISIT lab Encounters Encounter Location Date Provider Diagnosis [facility] [address] [place] [address] 09/03/2023 Talha Fung Plan Of Treatment No Information Progress Notes * Elpidio ARDON ADOB: [birth year] (28 yo M)Acc No.[id number]:09/03/2023 Phlebotomy Patient:?AUDREY, Elpidio Ara Provider:?Talha Fung MD :1995???Age:27 Y???Sex:Male Kenji e:09/03/2023 Address:[address] [place] [address] [address] [place], [place] Pcp:Kiersten Sykes Subjective: * Chief Complaints: Objective: Assessment: Plan: * Billing Information: * Visit Code:? * Procedure Codes:? * Electronic signature of Joanne Fung MD on 08/02/2024 at 08:44 AM EDT Sign off status: Pending * Provider:?Talha Fung MD Date:? 024 Generated for Printi ng/Faxing/eTransmitting on:?08/02/2024 08:44 AM EDT
--- OUTSIDE RECORDS SUMMARY | 2024-08-02 08:45 | XMS_ITS | Patient Health Record ---
Author Organization [facility] Address [address] [facility] [address] [place] [address] Care Team Providers Care Auto Phone Installer Name Role Phone Kiersten Sykes Primary Care Provider [phone] Talha Fung Unavailable [phone] Allergies No Known Allergies Reason For Referral No Information Medications Medication SIG (Take, Route, Frequency, Duration) [...] Problem Status W/U Status Risk Notes Problem 018422882 Mild intermitten t asthma, uncomplicated (J45.20) Active confirmed Problem 635312871 Seasonal allergi es (J30.2) Active confirmed Plan Of Treatment Pending Test Test Name [...] Insured Coverage Start Date Coverage End Date C[employer] [address] Oleg scPINEDA [phone] [id number] Elpidio Ardon Self - patient is the insured Medical (General) History Surgical History Surgery Date(Month/Year) wisdom teeth
== END 2024-08-02 09:28 | disposition home or self-care (01) ==
LOC: HO.HCS 08:26
PROVIDERS: PCP Emergency Medicine; Visit Provider Internal Medicine Cardiovascular Disease
DX: I45.6 Pre-excitation syndrome (principal); R94.31 Abnormal electrocardiogram [ECG] [EKG]
CPT/HCPCS: 93010; 99214; G2211

== ENCOUNTER → 2024-08-02 08:26 | Outpatient (BNVA) | payer OTHER, SELFPAY | PROVIDERS: PCP Emergency Medicine; Visit Provider Internal Medicine Cardiovascular Disease | DX: I45.6 Pre-excitation syndrome (principal); R00.2 Palpitations | CPT/HCPCS: 93005 ==

== ENCOUNTER → 2024-08-10 11:08 | Outpatient (REF) | payer OTHER, SELFPAY ==
--- OUTSIDE RECORDS SUMMARY | 2024-08-10 12:13 | XMS_ITS | Referral Summary ---
Author Organization [facility] Address [address] [place] [address] Care Team Providers Care Shadowgraph Scale Operator Name Role Phone Kiersten Sykes PA-C Primary Care Provider +1- [phone] Allergies No known active allergies Medications albuterol [...] EST Temperature 36.1 ??C (97 ??F) 03/14/2024 10: 41 AM EST Respiratory Rate 16 07/21/2023 9:27 AM EDT Oxygen Saturation 99% 06/05/2022 6:1 6 PM EST O2 type: room air O2 type dtl: room air Measured By: VANDANA OSEGUERA Inhaled Oxygen Concentration - - Weight 72.6 kg (160 lb) 03/14/2024 10:4 1 AM EST Height 162.6 cm (5' 4 ) 03/14/2024 10:4 1 AM EST Body Mass Index 27.46 03/14/2024 10:41 AM EST Plan of Treatment Not on file Care Teams Shadowgraph Scale Operator Relationship Specialty Start Date End Date Kiersten Sykes PA-C [address] [place] [address] PCP - General Physician Polish Compounder 06/25/23
--- OUTSIDE RECORDS SUMMARY | 2024-08-10 12:13 | XMS_ITS ---
Author Organization [facility] Address [address] [facility] [address] [place], [place] Care Team Providers Care Origination Specialist Name Role Phone Kiersten Sykes Primary Care Provider Talha Fung [phone] REASON FOR VISIT lab Encounters Encounter Location Date Provider Diagnosis [facility] [address] [address] 09/03/2023 Talha Fung Plan Of Treatment No Information Progress Notes * Elpidio ARDON ADOB: [birth year] (28 yo M)Acc No.[id number]:09/03/2023 Phlebotomy Patient:?AUDREY, Elpidio Ara Provider:?Talha Fung MD :1995???Age:27 Y???Sex:Male Kenji e:09/03/2023 Address:[address] [place] [address] [address] [facility] Pcp:Kiersten Sykes Subjective: * Chief Complaints: Objective: Assessment: Plan: * Billing Information: * Visit Code:? * Procedure Codes:? * Electronic signature of Joanne Fung MD on 08/10/2024 at 12:13 PM EDT Sign off status: Pending * Provider:?Talha Fung MD Date:? 024 Generated for Printi ng/Faxing/eTransmitting on:?08/10/2024 12:13 PM EDT
--- OUTSIDE RECORDS SUMMARY | 2024-08-10 12:13 | XMS_ITS | Patient Health Record ---
Author Organization [facility] Address [address] [facility] [address] [place] [address] Care Team Providers Care Lay Up Operator Name Role Phone Kiersten Sykes Primary Care Provider Talha Fung Unavailable [phone] Allergies No Known Allergies Reason For Referral [...] Problem Status W/U Status Risk Notes Problem 444879882 Mild intermitten t asthma, uncomplicated (J45.20) Active confirmed Problem 483360254 Seasonal allergi es (J30.2) Active confirmed Plan [...] Date Coverage End Date Cigna [id number] Oleg orPINEDA [phone] [id number] Elpidio Ardon Self - patient is the insured Medical (General) History Surgical History Surgery Date(Month/Year) wisdom teeth
--- OUTSIDE RECORDS SUMMARY | 2024-08-10 12:13 | XMS_ITS ---
Author Organization [facility] Address [address] [facility] [address] [place] [address] Care Team Providers Care Senior Outside Sales Representative Name Role Phone Kiersten Sykes Primary Care Provider REASON FOR VISIT Physical Encounters Encounter Location Date Provider Diagnosis [facility] [address] [facility] [address] [place] [address] 07/10/2023 Kiersten Sykes Plan Of Treatment No Information Progress Notes * Elpidio ARDON ADOB: [birth year] (28 yo M)Acc No.[id number]:07/10/2023 Progress Notes Patient:?Elpidio ARDON Ara Provider:?Kiersten Sykes PA-C :1995???Age:27 Y???Sex:Male Kenji e:07/10/2023 Address:[address] [facility] Subjective: * Chief Complaints: * ???1. Physical. * Medical History:? Objective: * Vitals:? Assessment: Plan: * Treatment: * Billing Information: * Visit Code:? * Procedure Codes:? * Electronic signature of Andrew Sykes PA-C on 08/10/2024 at 12:13 PM EDT Sign off status: Pending * Provider:Zahra Sykes PA-C Date:?0 07/10/2023 Generated for Printi ng/Faxing/eTransmitting on:?08/10/2024 12:13 PM EDT
--- OUTSIDE RECORDS SUMMARY | 2024-08-10 12:13 | XMS_ITS | Encounter Summary ---
Author Organization [facility] Address [address] [place] [address] Care Team Providers Care Relay Shop Tester Name Role Phone Kiersten Sykes PA-C Primary Care Provider +1- [phone] Encounter Details Date Type Department Care Team (Late st Contact Info) Description 06/23/2023 Procedure Pass [facility] Radiology Ultrasound [address] [place] [address] Social History Tobacco Use Types [...] on filedocumented in this encounter Care Teams Relay Shop Tester Relationship Specialty Start Date End Date Kiersten Sykes PA-C [address] [place] [address] PCP - General Physician Route Inspector 06/25/23 documented as of this encounter
--- OUTSIDE RECORDS SUMMARY | 2024-08-10 12:13 | XMS_ITS | Clinical Summary ---
Author Organization [facility] Address [address] [place] [address] Care Team Providers Care Plate Corrector Name Role Phone Kiersten Sykes PA-C Primary Care Provider +1- [phone] Allergies No known active allergies Medications albuterol [...] age to complete this topic Care Teams Plate Corrector Relationship Specialty Start Date End Date Kiersten Sykes PA-C [address] [place] [address] PCP - General Physician Swatch Clerk 06/25/23
--- OUTSIDE RECORDS SUMMARY | 2024-08-10 12:13 | XMS_ITS ---
Author Organization [facility] Address [address] [facility] [address] [place] [address] Care Team Providers Care Sales Associate Cashier Name Role Phone Kiersten Sykes Primary Care Provider [phone] Allergies No Known Allergies REASON FOR VISIT [...] 07/21/2023 Encounters Encounter Location Date Provider Diagnosis [facility] [address] [facility] [address] [place] [address] 07/21/2023 Kiersten Sykes Annual physical exam Z00.00 [...] Elpidio ARDON ADOB: [birth year] (27 yo M)Acc No.[id number]:07/21/2023 Progress Notes Patient:?AUDREYElpidio HARRIS A Provider:?Kiersten Sykes PA-C :1995???Age:27 Y???Sex:Male Kenji e:07/21/2023 Address:[address] , [facility] Subjective: * Chief Complaints: * ???Cpe * [...] repeat in 6 weeks. ?? * Procedure Codes:?18100 MEASU RE BLOOD OXYGEN [id number] BRIEF EMOTIONAL/BEHAV ASSMT, Modifiers: 59 * Follow Up:?6 weeks (Reason: Labs) * Images: Billing Information: * Visit Code:? 51291 Preventive Care Est Pt. Age 18-39. 277[address] Office Visit, Est Pt., Level 4. * Procedure Codes:? 10912 MEASURE BLOOD OXYGEN LEVEL. 42635 BRIEF EMOTIONAL/BEHAV ASSMT. Modifiers: 59 * Sign off status: Completed true * Provider:Zahra Sykes PA-C Date:?0 07/21/2023 Generated for Capo kingston/Kelsi/eTransmitting on:?08/10/2024 12:13 PM EDT History and Physical Notes * HPI [...]
== END ==
LOC: HO.CARD 11:08
PROVIDERS: Visit Provider Internal Medicine Cardiovascular Disease
DX: I45.6 Pre-excitation syndrome (principal)
CPT/HCPCS: 93270

== ENCOUNTER → 2024-08-10 11:14 | Outpatient (BNV) | payer OTHER, SELFPAY | PROVIDERS: Visit Provider Internal Medicine | DX: I47.10 Supraventricular tachycardia, unspecified (principal) | CPT/HCPCS: 93272 ==

== ENCOUNTER → 2024-08-30 08:09 | Outpatient (BNV) | payer OTHER, SELFPAY | DX: R06.02 Shortness of breath (principal); R07.9 Chest pain, unspecified; I45.6 Pre-excitation syndrome | CPT/HCPCS: 93016; 93018; 93350 ==

== ENCOUNTER → 2024-08-30 08:10 | Outpatient (REF) | payer OTHER, SELFPAY ==
--- NOTE | 2024-08-30 08:09 | CA_ITS ---
Transthoracic Echocardiogram Patient (Last, First, Middle): Elpidio Ardon, Gender: Male Date of : 1995 Age: 28 Procedure Date: 08/30/2024 Procedure Type: Transthoracic Echocardiogram Location: OP Height: 162. cm Weight: 68.04 kg BSA: 1.73 m2 Heart Rate: 83 bpm BP: 125 / 80 mmHg Tree Shear Operator: NAVID Referring MD: Gigi Oliver MD Symptoms: I45.6 - Pre-excitation syndrome Study Quality: Adequate ECG Rhythm: Sinus Conclusions: - The left ventricular systolic function is normal. The calculated ejection fraction is 64% by biplane method. - No obvious valvular pathology seen on this study. Findings Left Ventricle Normal left ventricular cavity size. There is normal left ventricular wall thickness. The left ventricular systolic function is normal. The calculated ejection fraction is 64% by biplane method. There is no evidence of regional wall motion abnormalities. Diastolic function is normal for age. Right Ventricle Normal right ventricular cavity size and systolic function. Atria Both atria are normal in size. Aortic Valve There is a normal trileaflet aortic valve. There is no aortic valve stenosis. There is no aortic valve regurgitation. Mitral Valve The mitral valve appears normal. There is no mitral valve regurgitation. There is no mitral valve stenosis. Pulmonic Valve The pulmonic valve is likely normal. Tricuspid Valve There is no tricuspid valve regurgitation. There is no evidence of pulmonary hypertension. Great Vessels The asc aorta is normal in size. Venous The inferior vena cava is normal in size and collapses greater than 50% with inspiration. Pericardium/Pleural There is no evidence of pericardial effusion. Prior Study Comparison No prior study available for comparison. Recommendations, Care & Conclusions No obvious valvular pathology seen on this study. Measurements 2D Linear Measurements IVSd: 0.77 0.6-0.9/0.6-1.0 cm LVIDd: 3.75 3.9-5.3/4.2-5.9 cm LVIDd Index: 2.17 2.4-3.2/2.2-3.1 cm/m2 LVIDs: 2.52 2.0-3.6 cm LVPWd: 1.08 0.7-1.1 cm LA Diam: 2.90 2.7-3.8/3.0-4.0 cm LAIDs Index: 1.68 1.5-2.3 cm/m2 LV Mass: 127.60 67-162/88-224 g LV Mass Index: 73.76 43-95/49-115 g/m2 LVOT Diam: 1.80 3.0+(-)1.3 cm 2D Systolic Function EF 4C: 64.90 >55% EF 2C: 63.80 >55% EF BiP: 63.90 >55% Mitral Valve MV Pk E: 0.92 MV PK A: 0.48 MV Decel Time: 270.00 E/A: 1.90 E'Lateral: 13.90 E'Medial: 11.60 E/E' Med: 7.90 E/E' Lat: 6.60 PHT: 79.00 MVA PHT: 2.78 Decel [place]: 3.40 Aortic Valve AoV Pk Milton: 1.25 AoV Mn Milton: 0.94 AoV VTI: 0.25 AoV Pk Grad: 6.00 Aov Mn Grad: 4.00 AP Cont.VTI: 2.14 LVOT LVOT Pk Milton: 1.10 LVOT Mn Milton: 0.79 LVOT VTI: 0.21 LVOT Pk Grad: 5.00 LVOT Mn Grad: 3.00 LVOT Diam: 1.80 LVOT Area: 2.54 Diastolic Function MV Pk E: 0.92 MV Pk A: 0.48 E/A: 1.90 E'Medial: 11.60 E/E' Med: 7.90 E' Laterial: 13.90 E/E' Lat: 6.60 Right Ventricle TAPSE (mm): 19.90 TVS' Milton: 11.70 Tricuspid Valve RA Press: 3.00 Great Vessels Aorta Sinus of Valsalva: 2.80 2.0-3.5 cm Ao Asc: 2.30 2.1-3.4 cm Ao Arch: 2.40 Pulmonary Valve PV Pk Milton: 1.44 Peak PV Grad: 8.00 Updated in Other Vendor System with Status of Final Charlie Rodriguez MD electronically signed on 08/31/2024 12:30:47 PM with status of Final
--- NOTE | 2024-08-30 08:09 | CA_ITS ---
Acquisition Time: 2024-08-30 09:11:37 Total Exercise Time: 00:10:30 Test Indications: Abnormal ECG,Palpitations Medications: SEE H&P Protocol: LAURA Max HR: 176 BPM 91% of Pred: 193 BPM Max BP: 150/60 mmHG Max Work Load: 12.5 METS Exercise stress test with exercise 10 mins 30 secs of Laura Protocol, achieving 91% MPHr, with reports of mild SOB and 2/10 chest tightness that pt correlates to his asthma, without any arrythmias, with lowered BP response to exercise that went up slowly in later stages of exercise and into recovery. Without EKG changes meeting criteria for ischemia, baseline ST- T waves abnormalities. Pt had latent preexcitation with delta waves noted at peak HR of 170s. In recovery, pt feeling back to baseline. Test reviewed with Dr. Oliver. Referred By: Gigi Oliver Electronically Signed By: Mihir Dang
--- OUTSIDE RECORDS SUMMARY | 2024-08-30 08:13 | XMS_ITS | Encounter Summary ---
Author Organization [facility] Address [address] [place] [address] Care Team Providers Care Tassel Clipper Name Role Phone Kiersten Sykes PA-C Primary Care Provider [phone]- [phone] Encounter Details Date Type Department Care Team (Late st Contact Info) Description 06/23/2023 Procedure Pass [facility] Radiology Ultrasound [address] [place] [address] Social History Tobacco Use Types [...] on filedocumented in this encounter Care Teams Tassel Clipper Relationship Specialty Start Date End Date Kiersten Sykes PA-C [address] [place] [address] PCP - General Physician Brush Or Broom Cutter 06/25/23 documented as of this encounter
== END ==
LOC: HO.CARD 08:10
PROVIDERS: Visit Provider Internal Medicine Cardiovascular Disease
DX: I45.6 Pre-excitation syndrome (principal)
CPT/HCPCS: 93017; 93306

== ENCOUNTER 2024-09-26 08:51 | Outpatient (AMB) | payer OTHER, SELFPAY ==
--- OUTSIDE RECORDS SUMMARY | 2024-09-26 09:05 | XMS_ITS | Encounter Summary ---
Author Organization [facility] Address [address] [place] [address] Care Team Providers Care Labor Relations Director Name Role Phone Kiersten Sykes PA-C Primary Care Provider +1- [phone] Encounter Details Date Type Department Care Team (Late st Contact Info) Description 06/23/2023 Procedure [facility] Radiology Ultrasound [address] [place] [address] Social History Tobacco Use Types [...] on filedocumented in this encounter Care Teams Labor Relations Director Relationship Specialty Start Date End Date Kiersten Sykes PA-C [address] [place] [address] PCP - General Physician Shuttle Route Vehicle Operator 06/25/23 documented as of this encounter
--- NOTE | 2024-09-26 09:16 | A.OFFVIS_ITS ---
Vital Signs 09/26/24 09:17 Height 5 ft 4 in Weight 145 lb 8.081 oz BMI 25.0 BP 120/72 Blood Pressure Location Lt brachial Position Sitting Pulse 85 Pulse Source Pulse Oximeter Intake Visit Reasons: s/p echo/ ett/ 30 day per NS Radiocommunications Technician Required: No Allergies No Known Allergies Allergy (Verified 09/26/24 09:18) Medication List - Last Reconciled 09/26/24 by Sarai Hassan, MARITZA-C atomoxetine (Strattera) 80 mg PO DAILY azelastine intranasal fexofenadine (Yari Allergy) 180 mg PO DAILY HPI HPI s/p echo/ ett/ 30 day per NS: Details: Elpidio is a 28-year-old male with no significant past medical history who recently had EKG with finding of Nqnzy-Srltjiqao-Xatpd who reports heart palpitations and recently underwent a cardiac event monitor, stress test and echocardiogram and now presents for follow-up. Today he reports he will get some palpitations occasionally, typically brief. No presyncope, syncope, falls. No chest discomfort at rest or with activity. No shortness of breath, PND, orthopnea or edema. Walks frequently for exercise. PhD student at [employer]. Resides part-time in [place] and part-time in [place]. He is hoping to see electrophysiology near his primary home, [place]. [facility] Surgical History Hx of hernia repair Family History Father HTN (hypertension) Mother HTN (hypertension) Social History Alcohol intake: current Alcohol intake frequency: holidays/special occasions only Patient Tobacco Use Status: Never used Tobacco Review of Systems Const All systems reviewed & are unremarkable except as noted in HPI and below ENT Denies dizziness Card Denies chest pain, Denies chest pain at rest, Denies chest pain with activity, Denies rapid heart rate, Denies pedal edema, Denies edema, Denies leg edema, Denies lightheadedness, Denies palpitations, Denies dyspnea, Denies dyspnea on exertion and Denies orthopnea Resp Denies cough, Denies dyspnea and Denies dyspnea on exertion GI Denies hematochezia and Denies change in stool character Musc Denies abnormal gait, Denies limited range of motion, Denies muscle cramps, Denies muscle weakness, Denies numbness, Denies radiating pain into limb, Denies stiffness and Denies tingling Neuro Denies abnormal gait, Denies dizziness, Denies numbness and Denies tingling Endo Denies palpitations Physical Exam Vital Signs: Last Vital Signs Pulse 85 09/26/24 09:17 BP 120/72 09/26/24 09:17 BMI result Body Mass Index 25.0 Const General: cooperative, healthy appearing, comfortable and no acute distress Orientation/consciousness: patient oriented x3 Chest Chest palpation & inspection: normal inspection of the chest Resp Effort & Inspection: normal respiratory effort Auscultation: clear to auscultation bilaterally, no rales, no rhonchi and no wheezes Cardio Rate: regular rate Rhythm: regular rhythm Heart sounds: S1 normal heart sound present and S2 normal heart sound present Neuro General: patient oriented x3 Extrem General: Yes normal to inspection, No no pedal edema and No calf tenderness Psych Appearance: grossly normal Mental Status: mental status grossly normal Speech and movement: Normal speech and movement present Assessment & Plan Assessment & Plan (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 Symptom of heart palpitations, Most consistent with extra systoles. Cardiac event monitor worn 08/10/2024 for 25.7 days showing sinus rhythm with average heart rate 84, 30% of the time heart rate greater than 100, rare SVE and VE. Symptoms of heart palpitations correlated with sinus rhythm, SVE and VE. Echocardiogram done 08/30/2024 showing EF 64%, no valve abnormalities no regional wall motion abnormalities. Exercise stress test 08/30/2024 showed exercise 10 minutes 30 seconds with mild chest tightness that he related to asthma without arrhythmia and no EKG changes of ischemia. Test results reviewed with him in detail. Potential for arrhythmia with WPW findings reviewed. No indication for med management at this time. He has already been referred to electrophysiology for further evaluation. He is interested in seeing an EP provider closer to his primary home, in [place]. He will notify us when he has found one. Emergency care if ever needed for sustained heart palpitations. Vagal maneuvers reviewed. Cardiology follow-up 6 months, sooner if needed (2) Palpitations: Code(s): R00.2 - Palpitations Category: Medical Plan I discussed with the patient the findings of Wdxgp-Lvxyqmfun-Fdlee Syndrome and the potential for arrhythmias. We reviewed the normal results of the heart monitor, echocardiogram and stress test, and I explained the importance of monitoring symptoms. I advised on performing vagal maneuvers for rapid heartbeats and discussed the referral to an rate analyst for further evaluation. We also discussed the patient's living arrangements and the need to coordinate care between [place] and [place]. Patient Instructions: - Monitor for palpitations and dizziness. - Perform vagal maneuvers if experiencing rapid heartbeats. - Seek immediate medical attention if symptoms persist or worsen. - Follow up in six months for reassessment. - Coordinate care between [place] and [place]. Patient was informed and verbally consented to the use of an ambient scribe for clinic note documentation during this visit. Visit time spent on chart review, interview, assessment, orders, documentation. Coding Level of Care Code Est Pt Level 3 (11548) Complex EM visit Add On G2211 Diagnoses WPW (Vxrhm-Pvioucjvj-Lrkqa syndrome) I45.6 Palpitations R00.2 Time Spent (min) 22
[2024-09-26 09:17] VITALS: BP 120/72; PULSE 85; BMI 25.0
== END 2024-09-26 09:52 | disposition home or self-care (01) ==
LOC: HO.HCS 08:52
PROVIDERS: Visit Provider Nurse Practitioner Family
DX: I45.6 Pre-excitation syndrome (principal); R00.2 Palpitations
CPT/HCPCS: 99213; G2211